=== PATIENT | female | born 1990 | race Caucasian/White ===

== ENCOUNTER 2017-03-29 18:51 | Emergency (ER) | payer SELFPAY ==
[~2017-03-29] VITALS: Ht 177.8 cm; Wt 65.0 kg
[~2017-03-29 18:51] MED LIST: PREN1PAK2 PO; Z.0.NO CURRENT MEDS
[2017-03-29 18:53] VITALS: BP 137/66; PULSE 94; RESP 15; TEMP 98.4; O2SAT 100
[2017-03-29] MEDS ORDERED: LIDOCAINE HCL 1% 50 ML VIAL INFIL ONE (20:30)
[2017-03-29] MEDS ORDERED: CEPH-460 PO (20:54)
[2017-03-29] MEDS ORDERED: TYLETAB34 PO (20:55)
--- NOTE | 2017-03-29 20:56 | PD ---
HPI Chief Complaint: Skin Problem Time Seen by Provider: 20:23 Travel History International Travel<30 days: No Contact w/Intl Traveler<30days: No Traveled to known affect area: No History of Present Illness HPI Patient is a 26-year-old female presenting to emergency for evaluation of the right upper buttock abscess. Patient states it started 3 days ago, getting worse yesterday. She states it started draining spontaneously. She denies any fever, chills, nausea, vomiting, change in bowel habits. She denies any history of the same. Patient has been applying topical antibiotic ointment and Band-Aids. [facility] Past Medical History Medical History: Denies Significant Hx ?: Not LMP: 03/26/2017 : 1 Para: 1 Past Surgical History Surgical History: No Previous Surgery Social History Alcohol Use: Yes Tobacco Use: No Substance Use: No Allergies-Medications (Allergen,Severity, Reaction): Coded Allergies: No Known Allergies (Verified , 05/14/14) Reported Meds & Prescriptions Reported Meds & Active Scripts Active Review of Systems Except as stated in HPI: all other systems reviewed are Neg Skin: Positive Lesions Physical Exam Narrative GENERAL: Well-developed, well-nourished, alert female. Resting comfortably in no acute distress. SKIN: Warm and dry. 2 cm abscess to right upper buttock. Mild induration and fluctuance noted on exam. HEAD: Normocephalic. EYES: No scleral icterus. No injection or drainage. NECK: Supple, trachea midline. No JVD or lymphadenopathy. CARDIOVASCULAR: Regular rate and rhythm without murmurs, gallops, or rubs. RESPIRATORY: Breath sounds equal bilaterally. No accessory muscle use. GASTROINTESTINAL: Abdomen soft, non-tender, nondistended. MUSCULOSKELETAL: No cyanosis, or edema. BACK: Nontender without obvious deformity. No CVA tenderness. Data Data Last Documented VS Vital Signs Date Time Temp Pulse Resp B/P (MAP) Pulse Ox O2 Delivery O2 Flow Rate FiO2 03/29/17 18:53 98.4 94 15 137/66 (89) 100 Orders Orders Wound Culture And Gram Stain (03/29/17 20:30) Lidocaine 1% Inj (50 Ml) (Xylocaine 1% I (03/29/17 20:30) MDM Medical Decision Making Medical Screen Exam Complete: Yes Emergency Medical Condition: Yes Interpretation(s) Vital Signs Date Time Temp Pulse Resp B/P (MAP) Pulse Ox O2 Delivery O2 Flow Rate FiO2 03/29/17 18:53 98.4 94 15 137/66 (89) 100 Differential Diagnosis Abscess versus cellulitis versus sebaceous cyst versus impetigo versus other Narrative Course Patient presented for evaluation of an abscess to her right upper buttock. Patient's vital signs are stable. Please see procedure report for I&D. Patient tolerated procedure well. Wound culture obtained and pending. Patient will be started on Keflex empirically. She was given verbal wound care instructions. She was advised to follow-up with her primary doctor return to emergency department for any new or worsening symptoms. Patient verbalized understanding of instructions. Patient stable for discharge. Procedures Procedure Narrative After the risks and benefits were discussed the following procedure was performed: INCISION AND DRAINAGE OF ABSCESS: The area was prepped and was sterilely draped. A subcutaneous wheal of 1 % Xylocaine with a total number 1 mL was used to anesthetize the area. The area was properly anesthetized. A number 11 scalpel was used to make a 0.5 -cm incision across the area of the abscess. Cultures were obtained. The abscess was drained an irrigated with normal saline. Sterile dressing applied. Diagnosis Primary Impression: Abscess Additional Impression: Encounter for incision and drainage procedure Referrals: Primary Care Physician 2 days Patient Instructions: General Instructions Additional Instructions: Follow-up with her primary doctor in 2 days for reevaluation Complete full course of advised as prescribed Keep incision clean and dry, apply topical mupirocin ointment as directed and cover with nonocclusive dressing Return to emergency department immediately for any new or worsening symptoms Use narcotic pain medication sparingly, consider pumping breast milk and discarding it while taking narcotic pain medication. Med/Other Pt SpecificInfo: Prescription(s) given Scripts Acetaminophen-Codeine (Tylenol-Codeine #3) 300-30 mg Tab 1 TAB PO Q4H Y for PAIN, #6 TAB 0 Refills Prov: Marilyn Vivar 03/29/17 Cephalexin (Keflex) 500 Mg Cap 500 MG PO Q12H for Infection for 10 Days, #20 CAP 0 Refills Prov: Marilyn Vivar 03/29/17 Disposition: 01 DISCHARGE HOME Condition: Stable Marilyn Vivar Mar 29, 2017 20:56
== END 2017-03-29 21:07 | disposition home or self-care (01) ==
LOC: NEPD 18:51
DX: L02.31 Cutaneous abscess of buttock (principal); B95.61 Methicillin susceptible Staphylococcus aureus infection as the cause of diseases classified elsewhere
CPT/HCPCS: 10060; 86403; 87070; 87185; 87186; 87205

== ENCOUNTER 2017-11-03 18:07 | Emergency (ER) | payer SELFPAY ==
[~2017-11-03] VITALS: Ht 180.3 cm; Wt 62.0 kg
[~2017-11-03 18:07] MED LIST changes: +CEPH-460 PO; -PREN1PAK2 PO; +TYLETAB34 PO; -Z.0.NO CURRENT MEDS
[2017-11-03 18:10] VITALS: BP 160/98; PULSE 98; RESP 18; TEMP 98.7; O2SAT 100
== END 2017-11-03 19:59 | disposition left against medical advice (07) ==
LOC: NETRI 18:07
DX: Z53.21 Procedure and treatment not carried out due to patient leaving prior to being seen by health care provider (principal)
CPT/HCPCS: 99281